=== PATIENT | female | born 1980 | race Caucasian/White ===

== ENCOUNTER 2016-07-18 10:11 | Emergency (ER) | payer OTHER ==
[2016-07-18] MEDS ORDERED: ASPIRIN 81 MG CHEW PO STA (10:40)
[2016-07-18] MEDS ORDERED: NITROGLYCERIN SL TABS 0.4 MG TAB SUBLINGUAL STA (10:40)
[2016-07-18 11:09] LABS: Basophils # (A) 0.1 k/uL (0-0.2); Basophils % (A) 1 %; CH 30.4; CHCM 34.4; Eosinophils # (A) 0.3 k/uL (0-0.7); Eosinophils % (A) 3 %; HCT 44.6 % (34.0-46.0); HDW 2.42; HGB 15.2 gm/dL (11.4-16.0); Luc # (Auto) 0.14; Luc % (Auto) 1; Lymphocytes # (A) 1.8 k/uL (1.0-4.8); Lymphocytes % (A) 18 %; MCH 30.2 pg (25.0-35.0); MCHC 34.1 g/dL (31.0-37.0); MCV 88.6 fL (80.0-100.0); Mean Platelet Volume 7.3; Monocytes # (A) 0.5 k/uL (0-1.0); Monocytes % (A) 5 %; Neutrophils # (A) 7.2 k/uL (1.3-7.7); Neutrophils % (A) 73 %; RBC 5.04 m/uL (3.80-5.40); RDW 12.6 % (11.5-15.5); WBC 9.9 k/uL (3.8-10.6); WBC (Perox) 9.83
--- NOTE | 2016-07-18 11:19 | ED ---
Chest Pain HPI - General Chief Complaint: Chest Pain Stated Complaint: chest pain Time Seen by Provider: 07/18/16 10:40 Source: patient Mode of arrival: ambulatory Limitations: no limitations - History of Present Illness Initial Comments: This is a 36-year-old female presents emergency Department chief complaint chest pain. She states started around 6 AM this morning. She has pain progress at work worse at work. Patient states that she has a history of hypertension and does see Dr. Del Cid. In states that she has early heart disease in the family. Patient states she does smoke 1 cigarette a day. Patient denies any hyperlipidemia, diabetes. Patient states nothing seems to make the pain feel better or worse at this time. Patient refused nitro patient was given aspirin. - Related Data Home Medications Medication Instructions Recorded Confirmed Losartan [Cozaar] 50 mg PO HS 06/14/15 07/18/16 Mirena 1 implant INTRAUTERI [id number] 07/18/16 07/18/16 Allergies Allergy/AdvReac Type Severity Reaction Status Date / Time Sulfa (Sulfonamide Allergy Rash/Hives Verified 07/18/16 11:06 Antibiotics) sulfamethoxazole Allergy Rash/Hives Verified 07/18/16 11:06 [From Bactrim] trimethoprim [From Bactrim] Allergy Rash/Hives Verified 07/18/16 11:06 Review of Systems ROS Statement: Those systems with pertinent positive or pertinent negative responses have been documented in the HPI. ROS Other: All systems not noted in ROS Statement are negative. EKG Findings - EKG Comments: EKG Findings:: NSR rate 75 pr 140, QRS 96, QT/QTC 380/424 Past Medical History Past Medical History: Hypertension History of Any Multi-Drug Resistant Organisms: None Reported Past Surgical History: Section, Cholecystectomy Past Anesthesia/Blood Transfusion Reactions: No Reported Reaction Past Psychological History: No Psychological Hx Reported Smoking Status: Current every day smoker Past Alcohol Use History: Occasional Past Drug Use History: None Reported - Past Family History Mother Family Medical History: Diabetes Mellitus, Myocardial Infarction ([place]) Additional Family Medical History / Comment(s): Mother at age of 48 of a heart attack Father Family Medical History: Diabetes Mellitus, Myocardial Infarction ([place]) General Exam Limitations: no limitations General appearance: alert, in no apparent distress, obese Head exam: Present: atraumatic, normocephalic, normal inspection Neck exam: Present: normal inspection. Absent: tenderness, meningismus, lymphadenopathy Respiratory exam: Present: normal lung sounds bilaterally. Absent: respiratory distress, wheezes, rales, rhonchi, stridor, chest wall tenderness Cardiovascular Exam: Present: regular rate, normal rhythm, normal heart sounds. Absent: systolic murmur, diastolic murmur, rubs, gallop, clicks GI/Abdominal exam: Present: soft, normal bowel sounds. Absent: distended, tenderness, guarding, rebound, rigid Neurological exam: Present: alert, oriented X3, CN II-XII intact Skin exam: Present: warm, dry, intact, normal color. Absent: rash Course Vital Signs 07/18/16 07/18/16 10:15 12:31 Temperature 97.6 F 97.9 F Pulse Rate 86 96 Respiratory 18 17 Rate Blood Pressure 186/100 177/107 O2 Sat by Pulse 99 98 Oximetry Chest Pain MDM - MDM 36-year-old female presented for chest pain. Patient's lab work, EKG within normal limits at this time. Patient does have risk factors that she is family history, she has a smoker and hypertension. Patient advised that she needs to the hospital for further workup including repeat enzymes, cardiology evaluation. Patient refuses at this time. Patient was sent medical advice understanding the risks that she may or could have heart problems. Patient will follow-up with her physical laboratory assistant. Disposition Clinical Impression: Chest pain Disposition: Left Against Medical Advice Condition: Stable Instructions: Chest Pain (ED) Additional Instructions: Please return to the Emergency Department if symptoms worsen or any other concerns. Referrals: Peggy Torres MD [Primary Care Provider] - 1-2 days Time of Disposition: 12:34
[2016-07-18 11:20] LABS: ALT 37 U/L (9-52); AST 23 U/L (14-36); Alkaline Phosphatase 50 U/L (38-126); Anion Gap 8 mmol/L; Blood Urea Nitrogen 11 mg/dL (7-17); Calcium 8.7 mg/dL (8.4-10.2); Carbon Dioxide 25 mmol/L (22-30); Chloride 107 mmol/L (98-107); Glucose 87 mg/dL (74-99); Magnesium 2.2 mg/dL (1.6-2.3); Non-African American GFR(MDRD) >60 (>60 ml/min/1.73 sqM); Potassium 4.5 mmol/L (3.5-5.1); Sodium 140 mmol/L (137-145); Total Bilirubin 0.6 mg/dL (0.2-1.3); Total Protein 6.2 g/dL (6.3-8.2)
[2016-07-18 11:28] LABS: Partial Thromboplastin Time 22.6 sec (22.0-30.0); Prothrombin Time 9.9 sec (9.0-12.0)
--- NOTE | 2016-07-18 11:32 | XR ---
EXAMINATION TYPE: XR chest 2V DATE OF EXAM: 07/18/2016 11:11 AM COMPARISON: 06/14/2015 HISTORY: 36-year-old female with chest pain TECHNIQUE: PA and lateral views FINDINGS: The cardiomediastinal silhouette, aorta, and pulmonary vasculature are within normal limits. Lungs an d pleural spaces are clear. IMPRESSION: No acute cardiopulmonary process.
[2016-07-18 11:57] LABS: Creatine Kinase 213 U/L (30-135)
[2016-07-18 12:08] LABS: Creatine Kinase MB 1.3 ng/mL (0.0-2.4); Troponin I <0.012 ng/mL (0.000-0.034)
[2016-07-18 12:33] VITALS: BP 177/107; PULSE 96; RESP 17; TEMP 97.9
== END 2016-07-18 12:53 | disposition left against medical advice (07) ==
LOC: EC 10:11
DX: R07.9 Chest pain, unspecified (principal); I10 Essential (primary) hypertension; F17.210 Nicotine dependence, cigarettes, uncomplicated; Z88.2 Allergy status to sulfonamides; Z53.29 Procedure and treatment not carried out because of patient's decision for other reasons; Z79.899 Other long term (current) drug therapy
CPT/HCPCS: 36415; 71020; 80053; 82550; 82553; 83735; 84484; 85025; 85610; 85730; 93005; 99285

== ENCOUNTER → 2020-12-06 | Outpatient (CLI) | payer OTHER ==
[2020-12-06 12:18] LABS: Partial Thromboplastin Time 23.4 sec (22.0-30.0); Prothrombin Time 10.7 sec (9.0-12.0)
--- NOTE | 2020-12-06 13:09 | XR ---
EXAMINATION TYPE: XR chest 2V DATE OF EXAM: 12/06/2020 COMPARISON: Chest x-ray July 18, 2016 HISTORY: History of asthma with sleep apnea. TECHNIQUE: Frontal and lateral views of the chest are obtained. FINDINGS: There is no suspicious new focal air space opacity, pleural effusion, or pneumothorax seen . The cardiac silhouette size is stable and within normal limits. The osseous structures are intac t. IMPRESSION: No acute cardiopulmonary process. No significant change from prior.
[2020-12-06 15:16] LABS: HCT 46.6 % (37.2-46.3); HGB 15.3 g/dL (12.0-15.0); MCH 29.9 pg (27.0-32.0); MCHC 32.8 g/dL (32.0-37.0); MCV 91.2 fL (80.0-97.0); Mean Platelet Volume 11.4 fL (9.5-12.2); Platelet Count 260 X 10*3/uL (140-440); RBC 5.11 X 10*6/uL (4.10-5.20); RDW 11.8 % (11.5-14.5); WBC 8.58 X 10*3/uL (4.50-10.00)
[2020-12-07 03:07] LABS: % Iron Saturation 30.57 (12.00-45.00); BUN/Creat Ratio 11.5 Ratio (12.00-20.00); Chol/HDL Ratio 3.74 Ratio; Globulin 2.3 g/dL (1.6-3.3); LDL Cholesterol,Calculated 73.7 mg/dL (0.0-131.0); VLDL Calculation 18.6 mg/dL (5.00-40.00)
[2020-12-07 03:08] LABS: African American GFR (CKD) 98.1 (60.0-200.0); Albumin 4.4 g/dL (3.8-4.9); Albumin/Globulin Ratio 1.89 (1.60-3.17); Anion Gap 13.8 mmol/L (4.00-12.00); Blood Urea Nitrogen 9.9 mg/dL (9.0-27.0); Calcium 9.3 mg/dL (8.7-10.3); Carbon Dioxide 21.2 mmol/L (21.6-31.8); HDL Cholesterol 33.7 mg/dL (40.00-60.00); Magnesium 2.4 mg/dL (1.5-2.4); Non-African American GFR(CKD) 84.6 (60.0-200.0); Phosphorus 3.8 mg/dL (2.4-5.1); Potassium 4.6 mmol/L (3.5-5.5); Total Bilirubin 0.4 mg/dL (0.30-1.20); Total Protein 6.7 g/dL (6.2-8.2)
[2020-12-07 03:14] LABS: Folate, Serum 13.2 ng/mL (4.40-31.00)
[2020-12-07 13:32] LABS: Zinc, Serum 91 ug/dL (60-130)
[2020-12-07 15:13] LABS: Anabasine Urine <2.0 ng/mL (<2.0)
== END | disposition home or self-care (01) ==
LOC: LABWHC1 10:34
PROVIDERS: ATTEND Surgery Plastic and Reconstructive Surgery
DX: J45.909 Unspecified asthma, uncomplicated (principal); G47.30 Sleep apnea, unspecified; E66.01 Morbid (severe) obesity due to excess calories; D50.8 Other iron deficiency anemias; K90.89 Other intestinal malabsorption; E55.9 Vitamin D deficiency, unspecified; K74.1 Hepatic sclerosis; N19 Unspecified kidney failure; K50.90 Crohn's disease, unspecified, without complications; Z71.51 Drug abuse counseling and surveillance of drug abuser
CPT/HCPCS: 84255; 84134; 84425; 80061; 80053; 82607; 82728; 82525; 82746; 83540; 83550; 83735; 84100; 84443; 84590; 84630; 85027; 85610; 85730; 82306; 83970; 83036; 80307; 71046; 93005; 36415; G0480; G0482; 80323

== ENCOUNTER 2021-02-18 07:03 | Day surgery (SDC) | payer OTHER ==
[2021-02-14 13:18] VITALS: BMI 44.6
[2021-02-18] MEDS ORDERED: LACTATED RINGERS 1,000 ML IV SCH (07:23)
[2021-02-18 07:47] VITALS: TEMP 97
--- NOTE | 2021-02-18 07:52 | P.GSHP ---
History of Present Illness H&P Date: 02/18/21 CHIEF COMPLAINT: GERD HISTORY OF PRESENT ILLNESS: The patient is a 40-year-old female who presents reports gastroesophageal reflux disease. Upper endoscopy was offered for further evaluation and management. PAST MEDICAL HISTORY: Please see list. PAST SURGICAL HISTORY: Please see list. MEDICATIONS: Please see list. ALLERGIES: Please see list. SOCIAL HISTORY: No illicit drug use FAMILY HISTORY: No reports of Crohn disease or ulcerative colitis. REVIEW OF ORGAN SYSTEMS: CONSTITUTIONAL: No reports of fevers or chills. GI: Denies any blood in stools or constipation. PHYSICAL EXAM: VITAL SIGNS: Stable GENERAL: Well-developed and pleasant in no acute distress. HEENT: No scleral icterus. Extraocular movements grossly intact. Moist buccal mucosa. NECK: Supple without lymphadenopathy. CHEST: Unlabored respirations. Equal bilateral excursions. CARDIOVASCULAR: Regular rate and rhythm. Distal 2+ pulses. ABDOMEN: Soft, nondistended. MUSCULOSKELETAL: No clubbing, cyanosis, or edema. ASSESSMENT: 1. Gastroesophageal reflux disease PLAN: 1. Recommend proceeding with an upper endoscopy Past Medical History Past Medical History: Chest Pain / Angina, Hypertension History of Any Multi-Drug Resistant Organisms: None Reported Past Surgical History: Section, Cholecystectomy Additional Past Surgical History / Comment(s): csection X3 Past Anesthesia/Blood Transfusion Reactions: No Reported Reaction Additional Past Anesthesia/Blood Transfusion Reaction / Comment(s): no hx blood transfusion Smoking Status: Former smoker - Past Family History Mother Family Medical History: Myocardial Infarction ([place]) Additional Family Medical History / Comment(s): Mother at age of 48 of a heart attack,Raynaud's Father Family Medical History: Diabetes Mellitus, Myocardial Infarction ([place]) Additional Family Medical History / Comment(s): AICD Medications and Allergies Home Medications Medication Instructions Recorded Confirmed Type Losartan [Cozaar] 75 mg PO HS 06/14/15 02/14/21 History Phentermine HCl [Adipex P] 37.5 mg PO AC-BRKFST 12/05/20 02/14/21 History Rosuvastatin [Crestor] 20 mg PO HS 12/05/20 02/14/21 History Ergocalciferol [Vitamin D2 (1250 50,000 unit PO WEEKLY 01/03/21 02/14/21 History Mcg = [id number] Iu)] Allergies Allergy/AdvReac Type Severity Reaction Status Date / Time Sulfa (Sulfonamide Allergy Rash/Hives Verified 02/18/21 07:32 Antibiotics) sulfamethoxazole Allergy Rash/Hives Verified 02/18/21 07:32 [From Bactrim] trimethoprim [From Bactrim] Allergy Rash/Hives Verified 02/18/21 07:32 Surgical - Exam Vital Signs Temp Pulse Resp BP Pulse Ox 97.0 F L 70 14 128/77 98 02/18/21 07:40 02/18/21 07:40 02/18/21 07:40 02/18/21 07:40 02/18/21 07:40
[2021-02-18] MEDS ORDERED: PROPOFOL 10 MG/ML 20 ML VIAL IV ONE (08:29)
[2021-02-18] MEDS ORDERED: LIDOCAINE 1% INJ 10MG/ML (20 ML MDV) ONE (08:29)
--- NOTE | 2021-02-18 08:58 | P.PCN ---
Date of Procedure: 02/18/21 Description of Procedure: PREOPERATIVE DIAGNOSIS: Gastroesophageal reflux disease. Morbid obesity. POSTOPERATIVE DIAGNOSIS: Morbid obesity. Gastritis. Gastroesophageal reflux disease. OPERATION: Esophagogastroduodenoscopy with biopsies along antrum. SURGEON: Silvana Hankins MD ANESTHESIA: MAC. INDICATIONS: The patient is a 40-year-old female who presents with a history of reflux disease. Benefits and risks of the procedure were described. Informed consent was obtained. DESCRIPTION: The patient was brought into the endoscopy suite and laid in the left lateral decubitus position. An Olympus gastroscope was passed along the posterior oropharynx down to the distal esophagus where the squamocolumnar junction was encountered at 36 cm from the incisors. The stomach was entered and no bile reflux was found. Additional findings are listed below. Biopsies with cold forceps were obtained of the antrum. The first through third portion of the duodenum was examined and unremarkable. Retroflexion of the scope confirmed Hill grade lower esophageal valve. The squamocolumnar junction demonstrated LA grade B erosive esophagitis. The stomach was desufflated. The patient tolerated the procedure well. FINDINGS: Squamocolumnar junction 36 cm from the incisors. Diaphragmatic hiatus at 36 cm. Hill grade 3 lower esophageal valve. LA grade B erosive esophagitis. No active duodenitis. Chronic gastritis RECOMMENDATIONS: Upper endoscopy as needed.
[2021-02-18 09:01] VITALS: RESP 18
[2021-02-18 09:30] VITALS: BP 119/71; PULSE 84
== END 2021-02-18 09:29 | disposition home or self-care (01) ==
LOC: ORWHC2ENDO 07:03
PROVIDERS: ATTEND Surgery Plastic and Reconstructive Surgery
DX: K21.9 Gastro-esophageal reflux disease without esophagitis (principal); K29.70 Gastritis, unspecified, without bleeding; E66.01 Morbid (severe) obesity due to excess calories; Z87.891 Personal history of nicotine dependence; I25.2 Old myocardial infarction; I73.00 Raynaud's syndrome without gangrene; E11.9 Type 2 diabetes mellitus without complications
CPT/HCPCS: 43239; J2001; J2704; 88305

== ENCOUNTER → 2021-04-24 | Outpatient (CLI) | payer OTHER ==
[2021-04-24 13:55] VITALS: BP 147/77; PULSE 76; RESP 16; TEMP 97.7; BMI 41.9
--- NOTE | 2021-04-24 14:22 | P.BASOAP ---
Subjective Progress Note Date: 04/24/21 DATE OF SERVICE: 04/24/2021 CHIEF COMPLAINT: Morbid obesity HISTORY OF PRESENT ILLNESS: Micki Cunningham is a 41-year-old female who comes with lifelong morbid obesity. She is looking into the gastric bypass. She is on medical supervised weight loss with her primary care provider. She is clinically doing well. She has a stress test pending. At height of 5 feet 6.5 inches, her ideal body weight is 154 pounds. Her highest weight 305 pounds, BMI 48.6. She comes in 263 pounds from 299 pounds, 4 months ago. She has lost 36 pounds in 4 months. Her body mass index is 42.0. She is 109 pounds overweight. PAST MEDICAL HISTORY: 1. Morbid obesity due to excess calories, BMI 48.6 2. Hypertensive heart disease 3. Hyperlipidemia 4. Angina 5. Osteoarthritis of the lower back 6. Osteoarthritis of the hips 7. Osteoarthritis of the ankles 8. Osteoarthritis of the feet PAST SURGICAL HISTORY: 1. x 3 2. Cholecystectomy HOME MEDICATIONS: Home Medications Medication Instructions Recorded Confirmed Losartan [Cozaar] 75 mg PO HS 06/14/15 04/25/21 Phentermine HCl [Adipex P] 37.5 mg PO AC-BRKFST 12/05/20 04/25/21 Rosuvastatin [Crestor] 20 mg PO HS 12/05/20 04/25/21 Ergocalciferol [Vitamin D2 (1250 50,000 unit PO WEEKLY 01/03/21 04/25/21 Mcg = [id number] Iu)] ALLERGIES: Allergies Allergy/AdvReac Type Severity Reaction Status Date / Time Sulfa (Sulfonamide Allergy Rash/Hives Verified 02/18/21 07:32 Antibiotics) sulfamethoxazole Allergy Rash/Hives Verified 02/18/21 07:32 [From Bactrim] trimethoprim [From Bactrim] Allergy Rash/Hives Verified 02/18/21 07:32 SOCIAL HISTORY: Past tobacco use. FAMILY HISTORY: No family history of ulcerative colitis disease or Crohn's disease. Family history of morbid obesity. No lupus in the family. No reports of stomach or esophageal cancer. REVIEW OF ORGAN SYSTEMS: CONSTITUTIONAL: At height of 5 feet 6.5 inches, her ideal body weight is 154 pounds. Her highest weight 305 pounds, BMI 48.6. She comes in 299 pounds. Her body mass index is 47.7. She is 145 pounds overweight. HEENT: Denies any active troubles with vision or hearing. ENDOCRINE: Denies diabetes. No hypothyroidism. CARDIOVASCULAR: Past reports of palpitations or heart attacks or chest pain. Has hypertensive heart disease. RESPIRATORY: Has daytime somnolence. GASTROINTESTINAL: Denies any bright red blood per rectum. No diarrhea. No constipation. GENITOURINARY: Denies bladder urgency. No recent blood in urine MUSCULOSKELETAL: Has lower back pain and joint pain. Has osteoarthritis of the knees. NEURO: No headaches. No seizure disorders. PSYCH: Denies depression. No suicidal ideation. RHEUMATOLOGIC: No lupus. No rheumatoid arthritis. HEMATOLOGIC: Denies any abnormal bleeding or bruising. Denies history of DVTs. SKIN: No rash. No skin cancer. PHYSICAL EXAM: VITAL SIGNS: Height 5 foot 6.5 inches, weight 263 pounds. BMI 42.0 Vital Signs Temp 97.7 F 04/24/21 13:53 Pulse 76 04/24/21 13:53 Resp 16 04/24/21 13:53 BP 147/77 04/24/21 13:53 Pulse Ox GENERAL: Well-developed in no acute distress. HEENT: No scleral icterus. Extraocular movements grossly intact. Hears conversational speech. No nasal drainage. NECK: Supple without lymphadenopathy. CHEST: Nonlabored respirations with equal bilateral excursions. CARDIOVASCULAR: Regular rate and regular rhythm. Distal 2+ pulses. ABDOMEN: Obese, soft, nontender, nondistended. MUSCULOSKELETAL: No clubbing, cyanosis. NEURO: No focal or lateralizing signs. Cranial nerves 2 through 12 grossly within normal limits. PSYCH: Appropriate affect. Alert and oriented to person, place and time. SKIN: Good skin turgor. Well perfused. LABS: Reviewed. Vitamin A low. Vitamin D low. Urine cotinine elevated. EGD FINDINGS: Squamocolumnar junction 36 cm from the incisors. Diaphragmatic hiatus at 36 cm. Hill grade 3 lower esophageal valve. LA grade B erosive esophagitis. No active duodenitis. Chronic gastritis EKG: Normal sinus rhythm. STUDIES: Chest xray report reviewed with no significant findings. Final Pathologic Diagnosis STOMACH, ANTRUM, BIOPSY: Reactive gastropathy with minimal chronic inflammation. Helicobacter pylori organisms are not identified on routine H+E sections. ASSESSMENT: 1. Morbid obesity due to excess calories 2. Body mass index of 48.6 to 42.0 3. Hyperlipidemia 4. Angina 5. Osteoarthritis of the lower back 6. Osteoarthritis of the hips 7. Osteoarthritis of the ankles 8. Osteoarthritis of the feet 9. Hypertensive heart disease 10. Vitamin A deficiency 11. Vitamin D deficiency 12. Tobacco abuse disorder PLAN: 1. Recommend repeat urine drug screen secondary to secondary tobacco abuse exposure. 2. Her stress test is pending. 3. Completion of medically supervised weight loss per insurance guidelines advised. 4. She may obtain supplements via [employer] reviewed. Objective - Vital Signs Vital signs: Vital Signs Temp 97.7 F 04/24/21 13:53 Pulse 76 04/24/21 13:53 Resp 16 04/24/21 13:53 BP 147/77 04/24/21 13:53 Pulse Ox Intake & Output 04/23/21 04/24/21 04/24/21 18:59 06:59 18:59 Weight 119.748 kg Assessment/Plan Plan: Date: 04/24/21 Initial Weight: 136.078 kg Initial BMI: 47.7 Current Weight: 119.748 kg Current BMI: 41.9 Type of Surgery: Total Volume in Band: Previous Volume: Volume Removed: Volume Added: Band Size:
[2021-04-30 08:30] LABS: Anabasine Urine <2.0 ng/mL (<2.0)
== END ==
LOC: BARWHC3 13:16
PROVIDERS: ATTEND Surgery Plastic and Reconstructive Surgery
DX: E66.01 Morbid (severe) obesity due to excess calories (principal); Z68.41 Body mass index [BMI] 40.0-44.9, adult; E78.5 Hyperlipidemia, unspecified; I20.9 Angina pectoris, unspecified; M47.9 Spondylosis, unspecified; M16.0 Bilateral primary osteoarthritis of hip; M19.071 Primary osteoarthritis, right ankle and foot; M19.072 Primary osteoarthritis, left ankle and foot; I11.9 Hypertensive heart disease without heart failure; E50.9 Vitamin A deficiency, unspecified; E55.9 Vitamin D deficiency, unspecified; Z72.0 Tobacco use; Z88.2 Allergy status to sulfonamides
CPT/HCPCS: G0480; G0463; 80323; 99211

== ENCOUNTER → 2021-04-29 | Outpatient (CLI) | payer OTHER ==
[2021-04-29 12:59] VITALS: BMI 42.6
== END ==
LOC: BARWHC3 08:42
PROVIDERS: ATTEND Surgery Plastic and Reconstructive Surgery
DX: E66.01 Morbid (severe) obesity due to excess calories (principal); Z71.3 Dietary counseling and surveillance; F17.200 Nicotine dependence, unspecified, uncomplicated; Z68.41 Body mass index [BMI] 40.0-44.9, adult; Z88.2 Allergy status to sulfonamides
CPT/HCPCS: 97804

== ENCOUNTER → 2024-05-16 | Outpatient (CLI) | payer BC ==
[2024-05-16 10:42] LABS: BUN/Creat Ratio 14.22 Ratio (12.00-20.00); Blood Urea Nitrogen 12.8 mg/dL (9.0-27.0); Carbon Dioxide 25.3 mmol/L (21.6-31.8); Chloride 107 mmol/L (96-109); Chol/HDL Ratio 3.88 Ratio; Glucose 146 mg/dL (70-110); LDL Cholesterol,Calculated 74.6 mg/dL (0.0-131.0); Magnesium 2.3 mg/dL (1.5-2.4); Potassium 4.4 mmol/L (3.5-5.5); Sodium 142 mmol/L (135-145)
[2024-05-16 10:43] LABS: ALT 22 U/L (8-44); AST 20 U/L (13-35); Albumin 3.9 g/dL (3.8-4.9); Albumin/Globulin Ratio 1.56 Ratio (1.60-3.17); Alkaline Phosphatase 66 U/L (41-126); Calcium 8.9 mg/dL (8.7-10.3); Globulin 2.5 g/dL (1.6-3.3); Total Bilirubin 0.4 mg/dL (0.3-1.2); Total Protein 6.4 g/dL (6.2-8.2)
[2024-05-16 10:50] LABS: Basophils # (A) 0.06 X 10*3/uL (0.00-0.10); Basophils % (A) 0.6 %; Eosinophils # (A) 0.19 X 10*3/uL (0.04-0.35); Eosinophils % (A) 1.9 %; HCT 45.8 % (37.2-46.3); Lymphocytes # (A) 2.34 X 10*3/uL (0.90-5.00); Lymphocytes % (A) 22.9 %; MCH 29.9 pg (27.0-32.0); MCHC 32.8 g/dL (32.0-37.0); MCV 91.2 FL (80.0-97.0); Monocytes # (A) 0.54 X 10*3/uL (0.20-1.00); Monocytes % (A) 5.3 %; NRBC Per 100 WBC 0 X 10*3/uL (0.00-0.01); Neutrophils # (A) 7.05 X 10*3/uL (1.80-7.70); Neutrophils % (A) 68.7 %; Platelet Count 236 X 10*3/uL (140-440); RBC 5.02 X 10*6/uL (4.10-5.20); RDW 12.3 % (11.5-14.5); WBC 10.24 X 10*3/uL (4.50-10.00)
== END | disposition home or self-care (01) ==
LOC: LABWHC1 07:07
PROVIDERS: ATTEND Internal Medicine Clinical Cardiac Electrophysiology
DX: Z00.00 Encounter for general adult medical examination without abnormal findings (principal); I10 Essential (primary) hypertension; E78.5 Hyperlipidemia, unspecified
CPT/HCPCS: 36415; 80053; 80061; 83735; 84443; 85025